=== PATIENT | female | born 1990 | race Caucasian/White ===

== ENCOUNTER 2017-05-15 09:15 | Emergency (ER) | payer OTHER ==
[~2017-05-15] VITALS: Ht 160 cm; Wt 82.0 kg
[2017-05-15 09:16] VITALS: BP 123/77; PULSE 64; RESP 20; TEMP 98.3; O2SAT 99
--- NOTE | 2017-05-15 09:35 | PD ---
HPI Chief Complaint: Skin Problem Time Seen by Provider: 09:29 Travel History International Travel<30 days: No Contact w/Intl Traveler<30days: No Traveled to known affect area: No History of Present Illness HPI 26-year-old female presents to the emergency department for evaluation of sunburn to lower back and face for 2 days. States she was out in the sun 2 days ago and has had a painful burn since then. States she has been alternating Tylenol and ibuprofen and applying aloe since then. States that the pain has persisted despite these medications. Denies any fever, chills, nausea, vomiting. No other complaints. History Past Medical Histgory Medical History: Denies Significant Hx Social History Alcohol Use: No Tobacco Use: No Review of Systems Except as stated in HPI: all other systems reviewed are Neg Physical Exam Narrative GENERAL: Well-nourished and well-developed pleasant female patient in no acute distress who is nontoxic appearing. SKIN: Warm and dry. Superficial sunburn to lower and middle back, forehead and cheeks. No blisters or peeling. HEAD: Normocephalic and atraumatic. EYES: No injection, drainage, or hyphema noted. PERRLA. EOMI. NEUROLOGICAL: Awake, alert, and oriented. Normal speech and gait. Cranial nerves are grossly intact. Data Data Last Documented VS Vital Signs Date Time Temp Pulse Resp B/P Pulse Ox O2 Delivery O2 Flow Rate FiO2 05/15/17 09:16 98.3 64 20 123/77 99 Room Air MDM Medical Screen Exam Complete: Yes Emergency Medical Condition: No Differential Diagnosis Superficial burn versus first degree burn versus medical screening exam Narrative Course 26-year-old female presents to the emergency department for evaluation of sunburn to the lower back and to her face. Patient is afebrile, vital signs are stable. On physical examination she has a superficial sunburn to her lower back and her face. No evidence of blistering or second-degree burn. I discussed with the patient that mainstay therapy for sunburn is NSAIDs and aloe and encouraged her to continue these supportive measurements. There is no urgent or emergent intervention necessary at this time. A medical screening exam was performed: At the time of evaluation the presenting medical condition was determined not to be of an emergent nature. Patient was given options for additional community resources from which to obtain care. The Patient Has Been advised to seek medical attention for their presenting complaint. The patient has been advised to return to the ER at any time if an emergent condition develops. Primary Impression: Superficial sunburn Additional Impression: Encounter for medical screening examination Disposition: [facility]GO-ED USE ONLY Condition: Stable Samantha Mcwilliams May 15, 2017 09:35
== END 2017-05-15 09:38 | disposition left against medical advice (07) ==
LOC: NEPK 09:15
DX: L55.9 Sunburn, unspecified (principal)
CPT/HCPCS: 99281

== ENCOUNTER 2017-06-05 21:39 | Emergency (ER) | payer OTHER ==
[~2017-06-05] VITALS: Ht 236.2 cm; Wt 86.5 kg
[2017-06-05 21:44] VITALS: BP 133/88; PULSE 93; RESP 15; TEMP 99.3; O2SAT 100
[2017-06-05 22:05] VITALS: RESP 16; O2SAT 99
--- NOTE | 2017-06-05 22:45 | PD ---
Physical Exam Date Seen by Provider: Jun 05, 2017 Time Seen by Provider: 22:44 Narrative 26 yo female here for SOB. History of asthma. Using inhalers but not better. Also has chest pressure. Going on for a few days. Cough. Vitals are stable in triage. Awaiting bed placement. Data Data Last Documented VS Vital Signs Date Time Temp Pulse Resp B/P Pulse Ox O2 Delivery O2 Flow Rate FiO2 06/05/17 22:05 16 99 06/05/17 21:44 99.3 93 133/88 Room Air [facility] Medical Record Reviewed: Yes Supervised Visit with SOFI: Clay Beckham Jun 05, 2017 22:45
== END 2017-06-05 23:27 | disposition left against medical advice (07) ==
LOC: NED 21:39
DX: R06.02 Shortness of breath (principal); R07.89 Other chest pain; R05 Cough; Z87.09 Personal history of other diseases of the respiratory system
CPT/HCPCS: 99281

== ENCOUNTER 2017-06-09 14:47 | Emergency (ER) | payer OTHER ==
[~2017-06-09] VITALS: Ht 160 cm; Wt 77.0 kg
[2017-06-09 14:48] VITALS: BP 122/71; PULSE 83; RESP 18; TEMP 99.3; O2SAT 98
[2017-06-09] MEDS ORDERED: IBUP200C PO (15:19)
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
[2017-06-09] MEDS ORDERED: VENTAER INH (15:39)
[2017-06-09] MEDS ORDERED: IBUP-232 PO (15:39)
[2017-06-09] MEDS ORDERED: CYCL1TAB29 PO (15:39)
[2017-06-09] MEDS ORDERED: NON-500T13 PO (15:39)
[2017-06-09] MEDS ORDERED: AZIT250T3 PO (15:39)
== END 2017-06-09 16:28 | disposition home or self-care (01) ==
LOC: NEPK 14:47
DX: S16.1XXA Strain of muscle, fascia and tendon at neck level, initial encounter (principal); M62.838 Other muscle spasm; J40 Bronchitis, not specified as acute or chronic; V43.52XA Car driver injured in collision with other type car in traffic accident, initial encounter; Y92.488 Other paved roadways as the place of occurrence of the external cause
CPT/HCPCS: 99284